=== PATIENT | male | born 1990 | race African-American/Black ===

== ENCOUNTER 2022-02-27 04:44 | Emergency (ER) | payer SELFPAY ==
[~2022-02-27] VITALS: Ht 180.3 cm; Wt 81.0 kg
[2022-02-27] MEDS ORDERED: IBUPROFEN 600MG TABLET PO ONE (05:30)
[2022-02-27 07:25] VITALS: BP 126/80
== END 2022-02-27 07:30 | disposition home or self-care (01) ==
LOC: ER 04:44
DX: S93.491A Sprain of other ligament of right ankle, initial encounter (principal); W18.39XA Other fall on same level, initial encounter; Y93.89 Activity, other specified; Y92.89 Other specified places as the place of occurrence of the external cause; Y99.8 Other external cause status
CPT/HCPCS: 73502; 73590; 73610; 99284; Z7610